=== PATIENT | male | born 1960 | race Caucasian/White ===

== ENCOUNTER 2019-05-28 11:15 | Emergency (ER) | payer SELFPAY ==
[~2019-05-28] VITALS: Ht 180.3 cm; Wt 72.6 kg
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
--- NOTE | 2019-05-28 12:14 | RAD ---
Examination: 3 views of the left knee, 2 views of the left tibia and fibula HISTORY: History of pain, swelling, injury COMPARISON: None available. FINDINGS: Changes of ACL reconstruction. There is lucency identified in the medial aspect of the lateral tibial plateau best seen on the AP view. Moderate joint space loss identified in the medial, lateral compartment femoral compartments. Moderate knee joint effusion with probable lipohemarthrosis. The alignment of the tibia, fibula grossly appears unremarkable. IMPRESSION: 1. Lucency identified in the medial aspect of the lateral tibial plateau suspicious for fracture. Moderate knee joint effusion with probable lipohemarthrosis. Electronically signed by: Donnie Burleson MD (05/28/2019 12:11 PM) [facility]
[2019-05-28] MEDS ORDERED: HYDROcodon/IBUPROFEN 7.5/200MG 1 TAB TABLET PO ONE (12:15)
--- NOTE | 2019-05-28 12:36 | RAD ---
Examination: Lower Extremity Venous Doppler Ultrasound History: Left leg pain, swelling Comparison: None Procedure: Patricio scale, color flow 2D and spectal waveform analysis images are obtained with and without compression in the area of the common femoral vein, superficial femoral vein - femoral vein junction, main femoral vein (superficial femoral vein) and popliteal vein. Veins of the proximal calf are also imaged. Findings: There is normal duplex flow, color flow and compressibility of all visualized vein segments. No evidence of deep venous thrombus is present. Impression: No evidence of DVT in the left lower extremity. Electronically signed by: Donnie Burleson MD (05/28/2019 12:33 PM) [place] [id number]
--- NOTE | 2019-05-28 12:55 | RAD ---
EXAM: CT left knee without contrast DATE: 05/28/2019 12:26 PM COMPARISON: No prior INDICATION: Tibial plateau fracture on prior radiograph TECHNIQUE: CT left knee was performed without IV contrast. Axial coronal and sagittal reformatted images were generated. PQRS compliance statement - One or more of the following individualized dose reduction techniques were utilized for this study: 1. Automated exposure control 2. Adjustment of the mA and/or kV according to patient size 3. Use of iterative reconstruction technique FINDINGS: There is a mildly comminuted lateral tibial plateau fracture with approximately 2 mm articular surface depression. This is not convincingly extend into the tibial spine. Several small ossicles are seen within the intercondylar notch. Changes of ACL reconstruction are seen with grossly intact ACL fibers by CT. Mild lucency is seen partially about the tibial interference screw measuring up to 4 mm. Lipohemarthrosis. Changes of left knee osteoarthritis is seen with small tricompartmental osteophytes. IMPRESSION: 1. Comminuted lateral tibial plateau fracture with 2 mm articular surface depression without extension into the tibial spine. 2. Lipohemarthrosis 3. Changes of ACL reconstruction with grossly intact fibers by CT. Electronically signed by: Juni Huffman MD (05/28/2019 12:52 PM) [facility]
[2019-05-28] MEDS ORDERED: OXYC5TAB4 PO (13:15)
[2019-05-28 13:25] VITALS: BP 134/92
== END 2019-05-28 13:31 | disposition home or self-care (01) ==
LOC: ER 11:15
DX: S82.142A Displaced bicondylar fracture of left tibia, initial encounter for closed fracture (principal); F17.210 Nicotine dependence, cigarettes, uncomplicated; V28.4XXA Motorcycle driver injured in noncollision transport accident in traffic accident, initial encounter; Y93.01 Activity, walking, marching and hiking; Y92.64 Mine or pit as the place of occurrence of the external cause; Y99.8 Other external cause status
CPT/HCPCS: 29505; 73562; 73590; 73700; 93971; 99284-25

== ENCOUNTER 2020-04-28 13:52 | Emergency (ER) | payer OTHER ==
[~2020-04-28] VITALS: Ht 175.3 cm; Wt 80.0 kg
[~2020-04-28 13:52] MED LIST: OXYC5TAB4 PO
[2020-04-28 14:10] VITALS: BP 126/68
--- NOTE | 2020-04-28 14:22 | PHYS DOC ---
Past History Past Medical History: Hepatitis Past Surgical History: Other Additional Past Surgical Histo: ACL repair left knee Smoking: Cigarettes Alcohol Use: None Drug Use: None General Adult EDM: Chief Complaint: LOWER EXT PAIN HPI: HPI: Patient is a [age] year old [sex] who presents with [] Review of Systems: Review of Systems: Constitutional: Denies fever or chills Eyes: Denies redness or eye pain HENT: Denies nasal congestion or sore throat Respiratory: Denies cough or shortness of breath Cardiovascular: Denies chest pain or palpitations GI: Denies abdominal pain, nausea, or vomiting : Denies dysuria or hematuria Musculoskeletal: Denies back pain or joint pain Integument: Denies rash or skin lesions Neurologic: Denies headache, focal weakness or sensory changes Complete systems were reviewed and found to be within normal limits, except as documented in this note. Heart Score: Risk Factors: Risk Factors: DM, Current or recent (<one month) smoker, HTN, HLP, family history of CAD, obesity. Risk Scores: Score 0 - 3: 2.5% MACE over next 6 weeks - Discharge Home Score 4 - 6: 20.3% MACE over next 6 weeks - Admit for Clinical Observation Score 7 - 10: 72.7% MACE over next 6 weeks - Early Invasive Strategies Allergies: Allergies: Allergies Coded Allergies Type Severity Reaction Last Updated Verified No Known Drug Allergies 05/28/19 No Physical Exam: PE: Constitutional: Well developed, well nourished, no acute distress, non-toxic appearance HENT: Normocephalic, atraumatic, oropharynx moist Eyes: PERRL, EOMI, conjunctiva normal, no discharge Neck: Normal range of motion, no tenderness, supple Cardiovascular: Heart rate normal, regular rhythm Lungs & Thorax: Bilateral breath sounds clear to auscultation, no wheezing Abdomen: Soft, no tenderness Skin: Warm, dry, no erythema, no rash Back: No tenderness, no CVA tenderness Extremities: No tenderness, ROM intact, no edema Neurologic: Alert and oriented X 3, normal motor function, normal sensory function, no focal deficits noted Psychologic: Affect normal, judgment normal EKG: EKG: [] Radiology/Procedures: Radiology/Procedures: PROCEDURE: FOOT RIGHT 3V FOOT RIGHT 3V History: Reason: brusing, swelling, safe fell on it today / Spl. Instructions: / History: Technique: 3 views right foot. Comparison: None. Findings: Normal alignment. No fracture. Soft tissues unremarkable. Tiny plantar calcaneal spur. Impression: 1. No acute osseous abnormality. Electronically signed by: Keith De La Fuente DO (04/28/2020 2:30 PM) [id number] Course & Med Decision Making: Course & Med Decision Making Pertinent Labs and Imaging studies reviewed. (See chart for details) Patient stable for discharge with outpatient follow-up with PCP. Discussed findings and plan with patient and family, who acknowledge understanding and agreement. Dragon Disclaimer: Dragon Disclaimer: This electronic medical record was generated, in whole or in part, using a voice recognition dictation system. Splinting Splinting : Location: Right foot Pre-Made Type: post op shoe Pre-Proc Neuro Vasc Exam: normal Post-Proc Neuro Vasc Exam: normal, unchanged from pre-exam Departure Departure: Impression: Primary Impression: Foot contusion Qualified Codes: S90.31XA - Contusion of right foot, initial encounter Disposition: 01 HOME/RESIDENCE PRIOR TO ADM Condition: STABLE Referrals: RANDAL EDWARD JR, MD (PCP) Patient Instructions: Cast Shoe, Foot Contusion, [id number] Additional Instructions: Use over the counter Tylenol and/or Ibuprofen for pain. ICE area 20 min on then leave off for next 20 mins. Repeat several times per day for next few days. Wear post op shoe when ambulating for comfort. Justification of Admission: Justification of Admission: Justification of Admission Dx: N/A SEPIDEH STOVER DO Apr 28, 2020 14:21
--- NOTE | 2020-04-28 14:33 | RAD ---
FOOT RIGHT 3V History: Reason: brusing, swelling, safe fell on it today / Spl. Instructions: / History: Technique: 3 views right foot. Comparison: None. Findings: Normal alignment. No fracture. Soft tissues unremarkable. Tiny plantar calcaneal spur. Impression: 1. No acute osseous abnormality. Electronically signed by: Keith De La Fuente DO (04/28/2020 2:30 PM) [id number]
== END 2020-04-28 14:44 | disposition home or self-care (01) ==
LOC: ER 13:52
DX: S90.31XA Contusion of right foot, initial encounter (principal); F17.200 Nicotine dependence, unspecified, uncomplicated; M77.31 Calcaneal spur, right foot; F17.210 Nicotine dependence, cigarettes, uncomplicated; W20.8XXA Other cause of strike by thrown, projected or falling object, initial encounter; Y93.89 Activity, other specified; Y92.89 Other specified places as the place of occurrence of the external cause; Y99.8 Other external cause status
CPT/HCPCS: 73630; 99283

== ENCOUNTER 2020-07-06 05:33 | Emergency (ER) | payer OTHER ==
[~2020-07-06] VITALS: Ht 175.3 cm; Wt 80.0 kg
--- NOTE | 2020-07-06 06:06 | PHYS DOC ---
Past History Past Medical History: Alcoholism, GI Bleed Past Surgical History: Other Additional Past Surgical Histo: ACL repair left knee Smoking: Cigarettes Alcohol Use: None Drug Use: None Adult General Chief Complaint Chief Complaint: NAUSEA/VOMITING/DIARRHEA HPI HPI Patient is a 59-year-old male who presents with nausea vomiting diarrhea. Onset was 5 days ago without any known inciting ingestion, exposure, or trauma. Nothing known makes better or worse. Patient reports his stomach being upset, denies any other pain. Timing of symptoms has been constant and worsening since onset. Patient reports constant nausea, inability to keep down p.o. intake, and 5-10 episodes of nonbilious emesis. He admits to having greater than 3 episodes of hematemesis yesterday. Patient initially admitted loose stools/diarrhea that has since resolved. Nonetheless, he does admit to having black tarry stools x3 days. He has not been able to take his home medications since onset due to nausea. Patient reports he has history of SVT and admits isolated episodes of palpitations that have waxed and waned since onset. Patient denies any fever greater than 100.4, COVID-19 contact (reports being tested x5 in last 4 weeks), URI-like symptoms, no recent travel, no chest pain, no shortness of breath, no urinary symptoms, no syncope, no anticoagulation. HPI concerning as patient reports history of hepatitis C and cirrhosis from long history of alcohol abuse, reports last drink was greater than 3 years ago. Denies history of colonoscopy or family history of colon cancer, does admit to recent E[facility] where he had esophageal varices clipped. He has hi story of GI bleed Review of Systems Review of Systems Fourteen body systems of review of systems have been reviewed. See HPI for pertinent positives and negative responses, other irene all other systems are negative, non-pertinent or non-contributory Allergies Allergies Allergies Coded Allergies Type Severity Reaction Last Updated Verified No Known Drug Allergies 05/28/19 No Physical Exam Physical Exam Constitutional: Well developed, well nourished, no acute distress, non-toxic appearance. HENT: Normocephalic, atraumatic, bilateral external ears normal, oropharynx moist, mild postnasal drip present, no obvious signs of bleeding or residual blood in oropharynx, no oral exudates, nose normal. Eyes: PERRLA, EOMI, conjunctiva normal, no discharge. Neck: Normal range of motion, no tenderness, supple, no stridor. Cardiovascular: Heart rate regular, sinus rhythm, no murmurs rubs or gallops Lungs & Thorax: Bilateral breath sounds clear to auscultation Abdomen: Bowel sounds normal, soft, generalized tenderness, mild voluntary guarding, no rebound, no masses, no pulsatile masses, no obvious spider angiomas. Nonsurgical abdomen, no peritoneal signs. Rectal exam performed. X1 external hemorrhoid noted, no palpable abnormalities of rectal vault, gross blood on finger during examination, fecal occult positive Skin: Warm, dry, no erythema, no palmar erythema, no rash. Back: Generalized tenderness which is chronic for patient, no abnormalities or palpable step-offs of central spinous processes of cervical, thoracic, and lumbar spines, no CVA tenderness. Extremities: No tenderness, no cyanosis, no clubbing, ROM intact, no edema. Neurologic: Alert and oriented X 3, no asterixis, cranial nerves II through XII grossly intact, normal motor & sensory function, no focal deficits noted. Psychologic: Affect normal, judgement normal, mood normal. Current Patient Data Vital Signs Vital Signs Date Time Temp Pulse Resp B/P (MAP) Pulse Ox O2 Delivery O2 Flow Rate FiO2 07/06/20 05:45 99.1 91 16 142/71 (94) 99 Room Air Lab Results Laboratory Tests Test 07/06/20 06:00 07/06/20 06:15 07/06/20 06:23 White Blood Count 7.0 x10^3/uL (4.0-11.0) Red Blood Count 3.01 x10^6/uL (4.30-5.70) Hemoglobin 7.8 g/dL (13.0-17.5) Hematocrit 24.5 % (39.0-53.0) Mean Corpuscular Volume 82 fL (79-100) Mean Corpuscular Hemoglobin 26 pg (25-35) Mean Corpuscular Hemoglobin Concent 32 g/dL (31-37) Red Cell Distribution Width 22.4 % (11.5-14.5) Platelet Count 51 x10^3/uL (140-400) Neutrophils (%) (Auto) 69 % (31-73) Lymphocytes (%) (Auto) 15 % (24-48) Monocytes (%) (Auto) 13 % (0-9) Eosinophils (%) (Auto) 2 % (0-3) Basophils (%) (Auto) 1 % (0-3) Neutrophils # (Auto) 4.8 x10^3uL (1.8-7.7) Lymphocytes # (Auto) 1.0 x10^3/uL (1.0-4.8) Monocytes # (Auto) 0.9 x10^3/uL (0.0-1.1) Eosinophils # (Auto) 0.1 x10^3/uL (0.0-0.7) Basophils # (Auto) 0.1 x10^3/uL (0.0-0.2) Prothrombin Time 14.3 SEC (9.4-11.4) Prothromb Time International Ratio 1.4 (0.9-1.1) Activated Partial Thromboplast Time 33 SEC (23-33) Sodium Level 135 mmol/L (136-145) Potassium Level 3.4 mmol/L (3.5-5.1) Chloride Level 103 mmol/L (98-107) Carbon Dioxide Level 24 mmol/L (21-32) Anion Gap 8 (6-14) Blood Urea Nitrogen 11 mg/dL (8-26) Creatinine 1.0 mg/dL (0.7-1.3) Estimated GFR (Cockcroft-Gault) 77.0 BUN/Creatinine Ratio 11 (6-20) Glucose Level 110 mg/dL (70-99) Calcium Level 7.6 mg/dL (8.5-10.1) Total Bilirubin 4.8 mg/dL (0.2-1.0) Aspartate Amino Transf (AST/SGOT) 55 U/L (15-37) Alanine Aminotransferase (ALT/SGPT) 19 U/L (16-63) Alkaline Phosphatase 84 U/L (46-116) Total Protein 6.6 g/dL (6.4-8.2) Albumin 2.5 g/dL (3.4-5.0) Albumin/Globulin Ratio 0.6 (1.0-1.7) Stool Occult Blood Positive (NEG) Lactic Acid Level 2.0 mmol/L (0.4-2.0) EKG EKG EKG ordered and interpreted by myself 0601 hrs. as sinus rhythm at 67 bpm, unremarkable intervals, no axis deviation, no acute ischemic findings, no STEMI Radiology/Procedures Radiology/Procedures 1 view chest x-ray obtained and interpreted by myself as no acute cardiopulmonary process, still pending official radiologist read at this time Course & Med Decision Making Course & Med Decision Making Patient seen on immediate ER arrival ABCs unremarkable Comprehensive history and physical exam obtained, limited prior medical history via our EMR reviewed. Subsequent diagnostic work-up studies ordered IV access obtained, 1 L IV normal saline, 4 mg Zofran, 80 mg IV Protonix bolus, 50mcg IV Octreotide bolus and orders for subsequent drip ordered Discussed with patient his high risk for recurrent GI bleed, especially since he had recent esophageal varices clipping approximately 4 weeks ago at [facility]. Has never had colonoscopy. Discussed preliminary diagnostic work-up in ER, discussed need for inpatient admission and likely surgery/GI consultation, patient amenable to this On-call hospitalist, Dr. Felix, contacted and case discussed. He accepted patient admission under his care at [facility] I discussed decision to transfer with patient, he was amenable. Patient with full capacity confirmed he is full code and amenable to receiving blood products if necessary All patient's questions and concerns addressed prior to ER transfer to [facility] for further medical and likely surgical intervention Dragon Disclaimer Dragon Disclaimer This electronic medical record was generated, in whole or in part, using a voice recognition dictation system. Departure Departure: Impression: Primary Impression: GI bleed Additional Impressions: History of esophageal varices with bleeding Cirrhosis Hepatitis C virus infection History of alcohol abuse External hemorrhoid Disposition: ADMITTED INPATIENT ([facility]) Admitting Physician: Rafaela Felix Condition: STABLE Referrals: RANDAL EDWARD JR, MD (PCP) Justification of Admission: Justification of Admission: Justification of Admission Dx: Yes (GI bleed in patient with cirrhosis and hist ory of esophageal varices) Problem Qualifiers RAYA ROTH DO Jul 06, 2020 06:06
[2020-07-06] MEDS ORDERED: ONDANSETRON PF 4 MG/2 ML VIAL. ONE (06:16)
--- NOTE | 2020-07-06 06:21 | EKG ---
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
[2020-07-06 06:25] LABS: BASO # 0.1 x10^3/uL (0.0-0.2); BASO % 1 % (0-3); EOS # 0.1 x10^3/uL (0.0-0.7); EOS % 2 % (0-3); HEMATOCRIT 24.5 % (39.0-53.0); HEMOGLOBIN 7.8 g/dL (13.0-17.5); LYMPH % 15 % (24-48); MEAN CORPUSCULAR HEMOGLOBIN 26 pg (25-35); MEAN CORPUSCULAR HGB CONC 32 g/dL (31-37); MEAN CORPUSCULAR VOLUME 82 fL (79-100); MONO # 0.9 x10^3/uL (0.0-1.1); MONO % 13 % (0-9); NEUT # 4.8 x10^3uL (1.8-7.7); NEUT % 69 % (31-73); PLATELET COUNT 51 x10^3/uL (140-400); RED BLOOD COUNT 3.01 x10^6/uL (4.30-5.70); RED CELL DISTRIBUTION WIDTH 22.4 % (11.5-14.5)
[2020-07-06 06:32] LABS: CALCIUM 7.6 mg/dL (8.5-10.1); POTASSIUM 3.4 mmol/L (3.5-5.1)
[2020-07-06 06:38] LABS: ALBUMIN 2.5 g/dL (3.4-5.0); ALBUMIN/GLOBULIN RATIO 0.6 (1.0-1.7); TOTAL BILIRUBIN 4.8 mg/dL (0.2-1.0); TOTAL PROTEIN 6.6 g/dL (6.4-8.2)
[2020-07-06 06:42] LABS: FECAL OB PT POSITIVE (NEG)
[2020-07-06] MEDS ORDERED: OCTREOTIDE 100 MCG/ML VIAL IV ONE (07:00)
[2020-07-06] MEDS ORDERED: PANTOPRAZOLE IV 40 MG VIAL. IVP ONE (07:00)
[2020-07-06] MEDS ORDERED: ONDANSETRON PF 4 MG/2 ML VIAL. IVP ONE ×2 (07:00→07:45)
[2020-07-06] MEDS ORDERED: IV NORMAL SALINE 1,000ML 1,000 ML IV ONE (07:00)
--- NOTE | 2020-07-06 07:14 | RAD ---
INDICATION: Reason: nausea, vomiting, diarrhea, shortness of breath, back pain / Spl. Instructions: / History: COMPARISON: None. FINDINGS: Single view of chest obtained. Cardiac silhouette is unremarkable given portable technique. Mild fullness of the bilateral pulmonary hilum. Mild linear opacities at left lower lung. IMPRESSION: * Mild linear opacities left lower lung. Could be secondary to mild pulmonary vascular congestion or atelectasis. Electronically signed by: Enzo Muñoz MD (07/06/2020 7:11 AM) [id number]
[2020-07-06] MEDS ORDERED: cefTRIAXone SODIUM 1 GM VIAL ONE (07:36)
[2020-07-06] MEDS ORDERED: IV NORMAL SALINE 50ML 50 ML ONE (07:36)
[2020-07-06 07:45] VITALS: BP 127/66
[2020-07-06 14:34] LABS: PLT ESTIMATE DECREASED (ADEQUATE)
[2020-07-06 14:35] LABS: OVALOCYTES FEW
[2020-07-06 14:36] LABS: TARGET CELLS PRESENT; TEAR DROP CELLS PRESENT
== END 2020-07-06 07:42 | disposition short-term general hospital (02) ==
LOC: ER 05:33
DX: K92.2 Gastrointestinal hemorrhage, unspecified (principal); I85.01 Esophageal varices with bleeding; B19.20 Unspecified viral hepatitis C without hepatic coma; K74.60 Unspecified cirrhosis of liver; K64.4 Residual hemorrhoidal skin tags; F10.20 Alcohol dependence, uncomplicated; F17.210 Nicotine dependence, cigarettes, uncomplicated; Y90.9 Presence of alcohol in blood, level not specified
CPT/HCPCS: 36415; 71045; 80053; 82274; 83605; 85025; 85610; 85730; 93005; 96361; 96374; 96375; 96376; 99285; C9113; J0696; J2354; J2405; J7030; 96365

== ENCOUNTER 2020-10-26 05:47 | Observation (INO) | payer OTHER ==
[~2020-10-26] VITALS: Ht 180.3 cm; Wt 67.2 kg
--- NOTE | 2020-10-26 06:06 | PHYS DOC ---
Past History Past Medical History: Alcoholism, GI Bleed Additional Past Medical Histor: esophageal varices, cirrosis, svt (MAURI CANTU DO) Past Medical History Significant for hepatitis C that was diagnosed in 1986, was treated at that time with interferon and ribavirin according to him, had relapsed again in 2019, was seen at [facility] and apparently has finished his second course of treatment. He is also known to have cirrhosis, portal hypertension, esophageal varices, has had 13 paracenteses and after he underwent TIPS procedure in 2019, has not had any further ascites. He is known to have generalized osteoarthritis and psoriasis. On his last admission, he was found to have severe esophagitis, prepyloric polyp that is ulcerated, but with no sign of bleeding. At that time, he was found to have also a duodenal diverticulum. (RAYA ROTH DO) Past Surgical History: Appendectomy, Other Additional Past Surgical Histo: ACL repair left knee, l4 and l5 fused. wireless monitor (MAURI CANTU DO) Smoking: Cigarettes Alcohol Use: None Drug Use: None (MAURI CANTU DO) Alcohol Use: Heavy Drug Use: Cocaine, Marijuana, Methamphetamine (RAYA ROTH DO) General Adult EDM: Chief Complaint: WEAKNESS/GENERALIZED HPI: HPI: 60 yo M past medical history of alcohol disease with liver cirrhosis and history of esophageal varices, presents to the ED brought in by EMS after son called 911. Patient has not left his bed in a few days and was defecating in it. When patient moved to the couch son called 911. History unobtainable from patient due to mental status. Is only alert to self. Believes it is 2009 or 2003. (MAURI CANTU DO) Review of Systems: Review of Systems: Review of systems unobtainable due to mental status (MAURI CANTU DO) Allergies: Allergies: Allergies Coded Allergies Type Severity Reaction Last Updated Verified No Known Drug Allergies 05/28/19 No (MAURI CNATU DO) Physical Exam: PE: Constitutional: Unkept disheveled appearance, malnourished, very thin with multiple excoriations over entire body HENT: Normocephalic, atraumatic, dry mucous membranes-no tongue fasciculations Eyes: EOMI, conjunctiva normal, no discharge. Neck: Normal range of motion, supple, Cardiovascular: S1/2 present, regular rhythm, tachycardic Lungs & Thorax: bilateral equal chest rise, no tachypnea Abdomen: soft, no tenderness, Skin: Warm, dry, Back: No midline tenderness, no CVA tenderness Extremities: no cyanosis, no edema, tremulous Neurologic: GCS14 ([id number]), Alert to self, not time/place/situation, unstable gait - required assistance from stretcher to bed ([facility]) Current Patient Data: Labs: Laboratory Tests Test 10/26/20 06:05 10/26/20 06:15 10/26/20 06:45 White Blood Count 8.0 x10^3/uL (4.0-11.0) Red Blood Count 2.87 x10^6/uL (4.30-5.70) Hemoglobin 8.1 g/dL (13.0-17.5) Hematocrit 25.1 % (39.0-53.0) Mean Corpuscular Volume 87 fL (79-100) Mean Corpuscular Hemoglobin 28 pg (25-35) Mean Corpuscular Hemoglobin Concent 32 g/dL (31-37) Red Cell Distribution Width 17.2 % (11.5-14.5) Platelet Count 90 x10^3/uL (140-400) Neutrophils (%) (Auto) 69 % (31-73) Lymphocytes (%) (Auto) 11 % (24-48) Monocytes (%) (Auto) 9 % (0-9) Eosinophils (%) (Auto) 11 % (0-3) Basophils (%) (Auto) 1 % (0-3) Neutrophils # (Auto) 5.5 x10^3uL (1.8-7.7) Lymphocytes # (Auto) 0.8 x10^3/uL (1.0-4.8) Monocytes # (Auto) 0.7 x10^3/uL (0.0-1.1) Eosinophils # (Auto) 0.8 x10^3/uL (0.0-0.7) Basophils # (Auto) 0.1 x10^3/uL (0.0-0.2) Prothrombin Time 12.9 SEC (9.4-11.4) Prothromb Time International Ratio 1.3 (0.9-1.1) Activated Partial Thromboplast Time 29 SEC (23-33) Sodium Level 138 mmol/L (136-145) Potassium Level 3.8 mmol/L (3.5-5.1) Chloride Level 104 mmol/L (98-107) Carbon Dioxide Level 19 mmol/L (21-32) Anion Gap 15 (6-14) Blood Urea Nitrogen 16 mg/dL (8-26) Creatinine 1.3 mg/dL (0.7-1.3) Estimated GFR (Cockcroft-Gault) 56.7 BUN/Creatinine Ratio 12 (6-20) Glucose Level 103 mg/dL (70-99) Lactic Acid Level 8.5 mmol/L (0.4-2.0) Calcium Level 9.3 mg/dL (8.5-10.1) Magnesium Level 1.8 mg/dL (1.8-2.4) Total Bilirubin 2.4 mg/dL (0.2-1.0) Aspartate Amino Transf (AST/SGOT) 40 U/L (15-37) Alanine Aminotransferase (ALT/SGPT) 27 U/L (16-63) Alkaline Phosphatase 124 U/L (46-116) Troponin I Quantitative < 0.017 ng/mL (0-0.055) Total Protein 6.7 g/dL (6.4-8.2) Albumin 2.7 g/dL (3.4-5.0) Albumin/Globulin Ratio 0.7 (1.0-1.7) Lipase 73 U/L (73-393) Salicylates Level < 2.8 mg/dL (2.8-20.0) Salicylate Last Dose Date Unknown Salicylate Last Dose Time Unknown Acetaminophen Level < 2.0 mcg/mL (10-30) Acetaminophen Last Dose Date Unknown Acetaminophen Last Dose Time Unknown Ethyl Alcohol Level < 10 mg/dL (0-10) Urine Collection Type Unknown Urine Color Berna Urine Clarity Clear Urine pH 7.0 Urine Specific Pinson 1.020 Urine Protein 30 mg/dl (NEG-TRACE) Urine Glucose (UA) Neg mg/dL (NEG) Urine Ketones (Stick) Trace mg/dL (NEG) Urine Blood Small (NEG) Urine Nitrite Neg (NEG) Urine Bilirubin Neg (NEG) Urine Urobilinogen Dipstick 2.0 mg/dL (0.2 mg/dL) Urine Leukocyte Esterase Neg (NEG) Urine RBC 6-10 /HPF (0-2) Urine WBC 1-4 /HPF (0-4) Urine Squamous Epithelial Cells Occ /LPF Urine Transitional Epithelial Cells Occ /LPF Urine Bacteria Few /HPF (0-FEW) Urine Hyaline Casts Few /HPF Urine Mucus Slight /LPF Urine Opiates Screen Pos (NEG) Urine Methadone Screen Neg (NEG) Urine Barbiturates Neg (NEG) Urine Phencyclidine Screen Neg (NEG) Urine Amphetamine/Methamphetamine Pos (NEG) Urine Benzodiazepines Screen Neg (NEG) Urine Cocaine Screen Pos (NEG) Urine Cannabinoids Screen Pos (NEG) Urine Ethyl Alcohol Neg (NEG) Ammonia 113 mcmol/L (11-34) Vital Signs: Vital Signs Date Time Temp Pulse Resp B/P (MAP) Pulse Ox O2 Delivery O2 Flow Rate FiO2 10/26/20 05:47 97.6 113 18 110/96 (101) 99 (RAYA ROTH DO) EKG: EKG: [] (MAURI CANTU DO) EKG: EKG ordered and interpreted by myself at 0615 hrs. as sinus rhythm at 113 bpm, prolonged QTC at 583 otherwise unremarkable intervals, no axis deviation, no acute ischemic findings, no STEMI (RAYA ROTH DO) Radiology/Procedures: Radiology/Procedures: [] (MAURI CANTU DO) Radiology/Procedures: CT head without contrast. CT cervical spine without contrast. PQRS statement: CT scans at this facility use dose reduction including either automated exposure control, iterative reconstructions, and /or weight based radiation dosing via mA and kV modification when appropriate to reduce radiation dose to as low as reasonably achievable. HISTORY: Altered mental status. CT head findings: No intracranial hemorrhage, mass, hydrocephalus, extra-axial fluid collections or infarction. A few tiny white matter hypoattenuating lesions of the frontal lobes are nonspecific most likely represent changes of chronic small vessel ischemic injury of the white matter. Orbits, mastoids and bones are unremarkable. IMPRESSION: No acute intracranial CT abnormality. CT cervical spine findings: Craniocervical junction intact. Cervical vertebral body height and alignment intact. No fracture of the cervical spine. Multilevel cervical disc height loss, soft disc protrusions and disc osteophytes and uncovertebral facet spurs with spinal canal and neural foraminal stenoses at several levels. Lung apices and paraspinal tissues are unremarkable. Diverticulum prevertebral space. IMPRESSION: 1. No acute osseous injury of the cervical spine. Cervical disc disease and arthritis as described above. 3. Possible 2 cm diverticulum with an air-fluid level, with a small neck communicating with the right posterior wall of the pharyngoesophageal junction could represent a Zenker diverticulum. Electronically signed by: Austin Mchugh MD (10/26/2020 7:15 AM) [id number] AP chest x-ray HISTORY: Altered mental status. FINDINGS: Heart size normal. Mediastinal silhouette is normal. Implanted electronic device left lower chest. No pneumothorax, pulmonary opacities or pleural effusions. Bones are unremarkable. IMPRESSION: No acute process. Electronically signed by: Austin Mchugh MD (10/26/2020 7:30 AM) [id number] (RAYA ROTH DO) Heart Score: Risk Factors: Risk Factors: DM, Current or recent (<one month) smoker, HTN, HLP, family history of CAD, obesity. Risk Scores: Score 0 - 3: 2.5% MACE over next 6 weeks - Discharge Home Score 4 - 6: 20.3% MACE over next 6 weeks - Admit for Clinical Observation Score 7 - 10: 72.7% MACE over next 6 weeks - Early Invasive Strategies (MAURI CANTU DO) HEART Score for Chest Pain: HEART Score for Chest Pain Response (Comments) Value History Slighlty/Non-Suspicious 0 ECG Normal 0 Age >45 - < 65 1 Risk Factors >3 Risk Factors or Hx CAD 2 Troponin < Normal Limit 0 Total 3 Course & Med Decision Making: Course & Med Decision Making Pertinent Labs and Imaging studies reviewed. (See chart for details) Concern for altered mental status in the setting of known alcoholic -ED work-up including labs, EKG and imaging are all pending. Due to shift change patient was signed out to Dr. Roth for further evaluation and management. (MAURI CANTU DO) Course & Med Decision Making Comprehensive signout obtained from off going physician. I reviewed ER work-up thus far, personally saw patient and repeated certain aspects of history and physical examination. E HR reviewed, appears patient was admitted to 1 week ago but left AMA. Was positive for alcohol, cocaine, THC and methamphetamine at that time. Son admitted patient was binging on "methamphetamine sandwiches" GCS 14, patient alert and oriented to self only. Patient reports feeling weak but denies any other symptoms. He has concerning skin breakdown in various areas of his body and is too weak to stand on his own, he cannot care for himself. No recent hemoptysis and/or rectal bleeding X2 peripheral IVs established, x1 banana bag and x1 L normal saline administered Patient found to have profound lactic acidosis and positive for numerous illicit drugs which is likely contributing to patient's history Given that patient is unable to safely ambulate and care for self at home in fact that he does not have regular care at home to assist through personal deficits, unable to dispo home. He will need admission. Dr. Raman contacted and agreed to admit patient here at [facility] for continued care Patient and son updated on proposed plan of care, they were amenable to admission. All questions and concerns addressed prior to ER departure to [facility] for admission (RAYA ROTH DO) Valerie Disclaimer: Valerie Disclaimer: This electronic medical record was generated, in whole or in part, using a voice recognition dictation system. (MAURI CANTU DO) Departure Departure: Impression: Primary Impression: Polysubstance abuse Additional Impressions: Lactic acidosis Dehydration Normocytic anemia Unable to care for self Skin breakdown Disposition: ADMITTED INPT THIS HOSP Admitting Physician: Rafaela Felix (RAYA ROTH DO) Condition: STABLE Referrals: RANDAL EDWARD JR, MD (PCP) MAURI CANTU DO Oct 26, 2020 06:06 RAYA ROTH DO Oct 26, 2020 06:33
[2020-10-26 06:42] LABS: BASO # 0.1 x10^3/uL (0.0-0.2); BASO % 1 % (0-3); EOS # 0.8 x10^3/uL (0.0-0.7); EOS % 11 % (0-3); HEMATOCRIT 25.1 % (39.0-53.0); HEMOGLOBIN 8.1 g/dL (13.0-17.5); LYMPH # 0.8 x10^3/uL (1.0-4.8); LYMPH % 11 % (24-48); MEAN CORPUSCULAR HEMOGLOBIN 28 pg (25-35); MEAN CORPUSCULAR HGB CONC 32 g/dL (31-37); MEAN CORPUSCULAR VOLUME 87 fL (79-100); MONO # 0.7 x10^3/uL (0.0-1.1); MONO % 9 % (0-9); NEUT # 5.5 x10^3uL (1.8-7.7); NEUT % 69 % (31-73); PLATELET COUNT 90 x10^3/uL (140-400); RED BLOOD COUNT 2.87 x10^6/uL (4.30-5.70); RED CELL DISTRIBUTION WIDTH 17.2 % (11.5-14.5)
--- NOTE | 2020-10-26 06:42 | EKG ---
[address] [address] Test Date: 2020-10-26 Test Time: 06:11:54 Pat Name: ARNOLDO HIGGINBOTHAM Department: Room: Gender: M Court Clerk: : [id number] Requested By: MAURI CANTU Order Number: [id number] Reading MD: Measurements Intervals [place] Rate: 113 P: 63 AR: 148 QRS: 45 QRSD: 90 T: 71 QT: 348 QTc: 483 Interpretive Statements SINUS TACHYCARDIA OTHERWISE NORMAL ECG RI6.02 No previous ECG available for comparison
[2020-10-26] MEDS ORDERED: MVI, ADULT NO.4 WITH VIT K 10 ML VIAL IV ONE (06:43)
[2020-10-26] MEDS ORDERED: THIAMINE 200 MG/2 ML VIAL. IV ONE (06:43)
[2020-10-26] MEDS ORDERED: MVI, ADULT NO.4 WITH VIT K 10 ML, THIAMINE INJ 100 MG in IV NORMAL SALINE 1,000ML 1,000... IV ONE (07:00)
[2020-10-26] MEDS ORDERED: IV NORMAL SALINE 1,000ML 1,000 ML IV ONE ×2 (07:00)
[2020-10-26 07:02] LABS: CALCIUM 9.3 mg/dL (8.5-10.1); CREATININE 1.3 mg/dL (0.7-1.3); GFR 56.7; POTASSIUM 3.8 mmol/L (3.5-5.1)
[2020-10-26 07:05] LABS: ACETAMIN < 2.0 mcg/mL (10-30); ETHANOL < 10 mg/dL (0-10)
[2020-10-26 07:06] LABS: SALIC < 2.8 mg/dL (2.8-20.0)
[2020-10-26 07:14] LABS: ALBUMIN 2.7 g/dL (3.4-5.0); ALBUMIN/GLOBULIN RATIO 0.7 (1.0-1.7); MAGNESIUM 1.8 mg/dL (1.8-2.4); TOTAL BILIRUBIN 2.4 mg/dL (0.2-1.0); TOTAL PROTEIN 6.7 g/dL (6.4-8.2)
[2020-10-26 07:15] LABS: BARBITURATES NEG (NEG); BENZODIAZEPINES NEG (NEG); CANNABINOIDS POS (NEG); COCAINE POS (NEG); METHADONE NEG (NEG); OPIATES POS (NEG); PHENCYCLIDINE NEG (NEG)
[2020-10-26 07:16] LABS: AMPHETAMINE/METHAMPHETAMINE POS (NEG)
--- NOTE | 2020-10-26 07:17 | RAD ---
CT head without contrast. CT cervical spine without contrast. PQRS statement: CT scans at this facility use dose reduction including either automated exposure cont rol, iterative reconstructions, and /or weight based radiation dosing via mA and kV modification when appropriate to reduce radiation dose to as low as reasonably achievable. HISTORY: Altered mental status. CT head findings: No intracranial hemorrhage, mass, hydrocephalus, extra-axial fluid collections or i nfarction. A few tiny white matter hypoattenuating lesions of the frontal lobes are nonspecific most likely represent changes of chronic small vessel ischemic injury of the white matter. Orbits, mastoid s and bones are unremarkable. IMPRESSION: No acute intracranial CT abnormality. CT cervical spine findings: Craniocervical junction intact. Cervical vertebral body height and alignm ent intact. No fracture of the cervical spine. Multilevel cervical disc height loss, soft disc protru sions and disc osteophytes and uncovertebral facet spurs with spinal canal and neural foraminal steno ses at several levels. Lung apices and paraspinal tissues are unremarkable. Diverticulum prevertebral space. IMPRESSION: 1. No acute osseous injury of the cervical spine. Cervical disc disease and arthritis as described ab ove. 3. Possible 2 cm diverticulum with an air-fluid level, with a small neck communicating with the right posterior wall of the pharyngoesophageal junction could represent a Zenker diverticulum. Electronically signed by: Austin Mchugh MD (10/26/2020 7:15 AM) [id number]
[2020-10-26 07:33] LABS: BACTERIA,URINE FEW /HPF (0-FEW); BILIRUBIN,URINE NEG (NEG); CLARITY,URINE CLEAR; COLOR,URINE AMBER; GLUCOSE,URINE NEG (NEG); NITRITE,URINE NEG (NEG); SQUAMOUS EPITHELIAL CELL,UR OCC /LPF
--- NOTE | 2020-10-26 07:33 | RAD ---
AP chest x-ray HISTORY: Altered mental status. FINDINGS: Heart size normal. Mediastinal silhouette is normal. Implanted electronic device left lower chest. No pneumothorax, pulmonary opacities or pleural effusions. Bones are unremarkable. IMPRESSION: No acute process. Electronically signed by: Asutin Mchugh MD (10/26/2020 7:30 AM) [id number]
[2020-10-26 07:34] LABS: HYALINE CASTS, URINE FEW /HPF
[2020-10-26 07:58] LABS: ANISOCYTOSIS SLIGHT; PLT ESTIMATE DECREASED (ADEQUATE); POLYCHROMASIA PRESENT
[2020-10-26 07:59] LABS: TOXIC GRANULATION PRESENT
[2020-10-26] MEDS ORDERED: MVI, ADULT NO.4 WITH VIT K 10 ML, THIAMINE INJ 100 MG, FOLIC ACID INJ 1 MG in IV NORMAL... IV SCH (09:00)
[2020-10-26 09:34] VITALS: BP 122/78
--- NOTE | 2020-10-26 10:00 | NUR ---
Patient arrived on unit via EMS accompanied by [facility]. Patient is drowsy, arousable to name. He is not answering assessment questions well; when asked today's date, he repeatedly gave his birthday; he also stated that he was in [facility]. Patient is a poor historian and unable to provide personal history or volunteer information at this time. Patient's scrotum and sacral areas are reddened related to incontinence issues. He has multiple small scratches and abrasions across his body in various states of healing. Patient arrived wearing a gown, a watch, and hospital socks. Attempted to orient patient to room, and instructed him to use his call light when needing to use bathroom. Will continue to monitor and report to .
[2020-10-26 11:00] VITALS: BP 122/78
[2020-10-26 15:00] VITALS: BP 125/72
--- NOTE | 2020-10-26 15:32 | HP ---
ADMIT DATE: 10/26/2020 HISTORY OF PRESENT ILLNESS: The patient is a 60-year-old male patient who was brought to the Emergency Room after his son called 911. The patient has not left his bed in a few days and was defecating in it. When the patient removed the couch, son called 911. The patient was extremely encephalopathic. He was only alert to himself. He believes that it was 2009 or 2003 and he was basically extremely weak. He was extensively investigated in the Emergency Room and he had an EKG, which showed he was in sinus rhythm with a heart rate of 113 beats per minute with prolonged QTc interval of 533, otherwise unremarkable intervals with no ST segment elevation, myocardial infarction. Has had a CT scan of the head and cervical spine. Has had lab work also showed that he has lactic acidosis with a serum lactate of 8.5. He was found to have normochromic normocytic anemia and thrombocytopenia. His prothrombin time and INR are slightly elevated, aPTT was normal. Urinalysis was unremarkable and his urine drug screen showed that he was positive for opioids, amphetamine, methamphetamine, cocaine, and cannabinoids. The patient was treated with IV fluid and banana bag and was admitted with generalized weakness with self-care deficit, dehydration, lactic acidosis, normochromic normocytic anemia. PAST MEDICAL HISTORY: Significant for hepatitis C that was diagnosed in 1986, was treated at that time with interferon and ribavirin according to him, it had relapsed again in 2019 and was seen at the [facility] and has been on treatment for that. He is known to have alcoholic liver cirrhosis, portal hypertension, esophageal varices. Has had 13 paracenteses and after he underwent TIPS procedure in 2019, has not had any further ascites. He is known to have generalized osteoarthritis and psoriasis. He is also known to have severe esophagitis and had a prepyloric polyp that is ulcerated, but without any overt sign of bleeding at that time as well as duodenal diverticulum. PAST SURGICAL HISTORY: Significant for appendectomy, vasectomy, L4-L5 vertebral fusion, left total knee arthroplasty, multiple esophagogastroduodenoscopy and TIPS procedure. ALLERGIES: He has no known drug allergies. FAMILY HISTORY: He has 1 brother and 1 sister, all younger and healthy. His father at the age of 90 with complication of obesity. Mother is still alive at the age of 88 and seemingly healthy. SOCIAL HISTORY: He is , has 2 sons, one in penitentiary and one lives with him. He smokes only 3 cigarettes a day, used to smoke a pack a day and quit smoking about 5 years ago. He drinks alcohol almost on a daily basis. He abuses cocaine, methamphetamine and cannabinoids. He is currently retired and on disability. 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 REVIEW OF SYSTEMS: As per history of present illness. MEDICATIONS: He is on following medications: Carafate 1 gram 4 times a day. He is also on Protonix 40 mg once a day, oxycodone 5 mg once a day every 6 hours, lorazepam 0.5 mg 3 times a day as needed. PHYSICAL EXAMINATION: GENERAL: On arrival to the Emergency Room, he was pale, but no jaundice, cyanosis or thyromegaly. No jugular venous distention. No lower limb edema. VITAL SIGNS: His heart rate was 113, blood pressure was 110/96, temperature 97.6, respiratory rate was 18 and oxygen saturation was 99% on room air. HEAD, EYES, EARS, NOSE AND THROAT: Showed he is normocephalic, atraumatic. NECK: Supple. HEART: Showed normal first and second heart sounds. No gallop or murmur. CHEST: Clear to auscultation. No crepitation or rhonchi. ABDOMEN: Distended, soft, nontender. NEUROLOGIC: He was initially confused, disoriented to time, place, and with markedly unstable gait and requires assistance from stretcher to bed. LABORATORY DATA: While in the Emergency Room, has had lab work done, which showed a white cell count of 8000, hemoglobin 8.1, hematocrit 25, MCV 87 and platelet count of 90,000 with normal manual differential. His chemistry showed a serum sodium 138, potassium 3.8, chloride 104, bicarbonate 19, anion gap of 15, BUN 16, creatinine 1.3, estimated GFR was 56 mL per minute. His glucose 103, lactic acid was 8.5, calcium was 9.3, magnesium was 1.8. Total bilirubin, AST, ALT, alkaline phosphatase slightly elevated. His total protein was 6.7, albumin was 2.7. Serum lipase was 73. His prothrombin time was 12.9, INR 1.3, aPTT was 29. Urinalysis showed the urine was viktor, clear with a pH of 7, specific gravity of 1.020. There was a small amount of protein. The urine was negative for glucose, there was trace of ketones, small amount of blood, negative for nitrites and leukocyte esterase. There were 6-10 rbc's, 1-4 wbc's, very few bacteria. His urine drug screen was positive for opiates, amphetamine, methamphetamine, benzodiazepine, on cocaine and cannabinoids. His chest x-ray showed the heart size is normal, mediastinal silhouette is normal. Implanted electronic device, left lower chest. Has no pneumothorax, pulmonary opacities or pleural effusion. Bone was unremarkable. Has had CT scan of the head and cervical spine. CT scan of the head showed no acute intracranial abnormality. CT scan of the cervical spine showed no acute osseous injury of the cervical spine, cervical disk disease and arthritis are described above. He has possible 2 cm diverticulum with an air-fluid level with a small awa communicating with the right posterior wall of the pharyngeal esophageal junction, could represent a Zenker's diverticulum. The patient has received 2 liters of IV normal saline, banana bag and was admitted, to continue on a banana bag. We will continue also on his medication as he is on Protonix 40 mg once a day. He is also on Carafate and oxycodone as well as Ativan. I will obviously monitor his lab work again this afternoon and again tomorrow morning. If he remains stable, he can be discharged home. CANDELARIO ALDRIDGE MD DR: PATRIA/ba JOB#: [id number] / [id number]
[2020-10-26 19:40] VITALS: BP 99/61
[2020-10-26 22:27] VITALS: BP 125/70
[2020-10-27] MEDS ORDERED: diphenhydrAMINE 50 MG/ML VIAL IVP PRN (00:30)
[2020-10-27] MEDS ORDERED: ONDANSETRON ODT 4 MG TAB.RAPDIS PO PRN (00:30)
[2020-10-27] MEDS ORDERED: ACETAMINOPHEN 325 MG TABLET PO PRN (00:30)
[2020-10-27 00:33] VITALS: BP 121/76
[2020-10-27 00:47] VITALS: BP 126/75
--- NOTE | 2020-10-27 01:04 | NUR ---
Notified blood was ready. Went to lab to pickup blood. New shift labor/excavator noted no label had been placed on blood following processing from prior shift tech and it was decided to re-type and cross this blood. Recalled later for blood being ready. Tech noted paper charting would need to be utilized for this transfusion. Two-person verification done in lab with tech and also 2-person verification done at bedside with second RN. Signatures placed on form and form will be placed in chart. Blood transfusion started at 0015. Tubing primed with normal saline and then primed with blood. Transfusion started at 75/hr and PT was closely monitored for the first 15 minutes. PT noted with mild nausea at 15 minutes into transfusion. PT given Zofran and blood infusion rate increased to 150/hr. PT tolerating well. New IV started for comfort. Prior IV occluding from PT bending arm.
[2020-10-27 01:17] VITALS: BP 129/73
[2020-10-27 02:12] VITALS: BP 115/66
[2020-10-27 03:16] VITALS: BP 126/89
[2020-10-27 05:26] VITALS: BP 131/76
[2020-10-27 06:18] LABS: BASO # 0.1 x10^3/uL (0.0-0.2); BASO % 1 % (0-3); EOS # 0.6 x10^3/uL (0.0-0.7); EOS % 9 % (0-3); HEMATOCRIT 23.9 % (39.0-53.0); HEMOGLOBIN 7.8 g/dL (13.0-17.5); LYMPH # 0.9 x10^3/uL (1.0-4.8); LYMPH % 14 % (24-48); MEAN CORPUSCULAR HEMOGLOBIN 28 pg (25-35); MEAN CORPUSCULAR HGB CONC 33 g/dL (31-37); MEAN CORPUSCULAR VOLUME 86 fL (79-100); MONO # 0.8 x10^3/uL (0.0-1.1); MONO % 13 % (0-9); NEUT # 4.4 x10^3uL (1.8-7.7); NEUT % 64 % (31-73); PLATELET COUNT 71 x10^3/uL (140-400); RED BLOOD COUNT 2.79 x10^6/uL (4.30-5.70); RED CELL DISTRIBUTION WIDTH 16.4 % (11.5-14.5); WHITE BLOOD COUNT 6.8 x10^3/uL (4.0-11.0)
[2020-10-27 06:32] LABS: ALBUMIN 2.2 g/dL (3.4-5.0); ALBUMIN/GLOBULIN RATIO 0.7 (1.0-1.7); CALCIUM 7.9 mg/dL (8.5-10.1); CREATININE 0.9 mg/dL (0.7-1.3); GFR 86.7; POTASSIUM 3.8 mmol/L (3.5-5.1); TOTAL BILIRUBIN 2.7 mg/dL (0.2-1.0); TOTAL PROTEIN 5.4 g/dL (6.4-8.2)
[2020-10-27] MEDS ORDERED: PANTOPRAZOLE 40 MG TABLET. PO SCH (07:30)
--- NOTE | 2020-10-27 08:23 | DS ---
DATE OF DISCHARGE: 10/27/2020 ATTENDING PHYSICIAN: Dr. Felix. FINAL DISCHARGE DIAGNOSES: 1. Altered mentation, resolved. 2. Polysubstance abuse. 3. Dehydration. 4. Iron-deficiency anemia. 5. Transfusion of packed red cells. 6. Dehydration. HISTORY AND PHYSICAL: This 60-year-old gentleman with longstanding history of polysubstance abuse, has went on a binger. He was obtunded with altered mentation. Urine drug screen was positive for amphetamines and opioids, methamphetamine, cocaine, and cannabinoids. He was treated accordingly. PHYSICAL EXAMINATION: Please see the dictated note. PERTINENT LABORATORY AND X-RAY STUDIES: Hemoglobin on admission was 8.1 gram with hydration dropped to 6.4 gram; he was given 1 unit of blood, came up to 7.8 g/dL; white count 6800. Chemistry panel: Creatinine was 0.9 mg percent. Lactic acid 8.5, it came down to 2.4 with hydration. Bilirubin was 2.7, total protein 5.4. The obligatory CT of the head and cervical spine showed no acute osseous injury of the cervical spine. CT of the head showed no strokes or bleed, nonspecific hypoattenuation lesion in the frontal lobes. Chest x-ray was clear. COURSE IN THE HOSPITAL: The patient was admitted. He was given fluids. Subsequent blood work showed a decrease in hemoglobin. He was given packed red cells to increase the oxygen carrying capacity in this symptomatic patient. Followup hemoglobin up to 7.8 gram next day, he did well. He became sober. Blood pressure and vital signs are stable. By the time, I saw him the next day blood pressure was 131/76, temperature 98.6 degrees Fahrenheit, pulse 89 and regular, oxygen saturation 99% on room air. Lungs were clear. Heart exam was regular. Skin was still pale, but warm and dry. He was sober. He wanted to go home. Strong encouragement to avoid substance abuse whether or not he will make any changes in lifestyle remains to be seen. We made arrangements for transportation home. No prescription meds. KATHY BERG MD DR: RADHA/ba JOB#: [id number] / [id number]
--- NOTE | 2020-10-27 08:45 | NUR ---
Patient stated that he wanted to leave early this morning at shift change. MD examined patient and placed discharge order. Patient provided with taxi voucher for ride to home in [place]. Prior to discharge, patient provided with discharge education. Patient escorted to front door via wheelchair.
[2020-10-31] MEDS ORDERED: THIAMINE INJ 100 MG in IV NORMAL SALINE 50ML 50 ML IV SCH (09:00)
[2020-10-31] MEDS ORDERED: FOLIC ACID 1 MG TABLET PO SCH (09:00)
[2020-10-31] MEDS ORDERED: MULTIVITAMIN with MINERAL TABLET. PO SCH (09:00)
[2020-11-02 16:03] LABS: HEMOGLOBIN 6.4 g/dL (13.0-17.5)
[2020-11-02 16:04] LABS: HEMATOCRIT 19.9 % (39.0-53.0)
== END 2020-10-27 08:45 | disposition home or self-care (01) ==
LOC: ER 05:47 → 1 SOUTH 07:57 → INTOOBSV 07:57
PROVIDERS: ADMIT Internal Medicine; ATTEND Internal Medicine
DX: G93.40 Encephalopathy, unspecified (principal); E87.2 Acidosis; F15.10 Other stimulant abuse, uncomplicated; R53.1 Weakness; E86.0 Dehydration; D64.9 Anemia, unspecified; R41.82 Altered mental status, unspecified; F17.210 Nicotine dependence, cigarettes, uncomplicated; Z90.49 Acquired absence of other specified parts of digestive tract; Z98.890 Other specified postprocedural states; K70.30 Alcoholic cirrhosis of liver without ascites; K76.6 Portal hypertension; D69.6 Thrombocytopenia, unspecified; D50.9 Iron deficiency anemia, unspecified; M15.9 Polyosteoarthritis, unspecified; M50.90 Cervical disc disorder, unspecified, unspecified cervical region; F14.10 Cocaine abuse, uncomplicated; M25.78 Osteophyte, vertebrae; Z96.652 Presence of left artificial knee joint
CPT/HCPCS: 36415; 36430; 70450; 71045; 72125; 80053; 80307; 80329; 81001; 82140; 83605; 83690; 83735; 84484; 85014; 85018; 85025; 85610; 85730; 86850; 86900; 86901; 86920; 87040; 93005; 96365; 97162; 97165; 99285; G0378; G0480; J7030; P9016; G0379

== ENCOUNTER → 2020-11-02 | Outpatient (CLI) | payer OTHER ==
[2020-10-27 05:26] VITALS: BP 131/76
== END ==
LOC: LAB 18:38
DX: Z02.83 Encounter for blood-alcohol and blood-drug test (principal)
CPT/HCPCS: 36415